=== PATIENT | male | born 1930 | race Caucasian/White ===

== ENCOUNTER 2017-06-06 12:15 | Day surgery (SDC) | payer MEDICARE, BC ==
[~2017-06-06] VITALS: Ht 190.7 cm; Wt 108.0 kg
[2017-06-06] VITALS (9 sets, daily range): BP systolic 103–148; BP diastolic 66–102; PULSE 60–81; TEMP 97.4
[~2017-06-06 12:15] MED LIST: ASPI325T6 PO; CLOPIDOGREL PO; CRESTOR 10MG10 MG PO; LASIX 20MG TABL20 MG PO; NITROQUICK0.4 MG SL; PLAVIX 75MG TAB75 MG PO; TIAZAC180 MG PO; TOPROL XL 50MG50 MG PO; VOLTAREN 75 DR75 MG PO; VYTORIN; ZESTORETIC 12.51 TA1 PO; ZESTORETIC 12.51 TAB PO
[2017-06-06 12:49] LABS: HEMATOCRIT 45.4 % (42.0-52.0); HEMOGLOBIN 15.2 g/dl (13.5-18.0); MEAN CELL VOLUME 94 fl (80.0-100.0); MEAN CORPUSCULAR HEMOGLOBIN 31 pg (27.0-31.0); MEAN CORPUSCULAR HGB CONC 34 g/dl (33.0-37.0); MEAN PLATELET VOLUME 10.2 fl (7.4-10.4); PLATELET COUNT 145 K/mm3 (130-400); RED BLOOD COUNT 4.84 M/mm3 (4.20-5.60); REDCELL DISTRIBUTION WIDTH-CV 13.5 % (11.5-14.5)
[2017-06-06] MEDS ORDERED: ASPIRIN E.C. 8181 MG PO (12:51)
[2017-06-06 12:54] LABS: PROTHROMBIN TIME 11.3 SECONDS (9.7-12.8)
[2017-06-06] MEDS ORDERED: K-DUR20 MEQ PO (12:56)
[2017-06-06 13:02] LABS: CALCIUM 9.7 mg/dL (8.4-10.2); CREATININE, serum 1.55 mg/dL (0.66-1.25); POTASSIUM 3.9 mmol/L (3.4-5.0)
--- NOTE | 2017-06-06 16:15 | NUR ---
Pt returned to [facility] 11 per bed s/p heart cath. Pt resting well, family at bedside.
--- NOTE | 2017-06-06 16:40 | NUR ---
Report to Prem Boudreaux RN who assumed care at this time.
--- NOTE | 2017-06-06 16:45 | NUR ---
Report received from Sven Tapia.
--- NOTE | 2017-06-06 18:30 | NUR ---
went over discharge inst. with pt and , pt has an appt with Dr Yarbrough, also no new RX for pt, reviewed activity inst. and incision care with verbal understanding. pt sat on side of bed, walked in arnett, used b/r, no changes to dressing.
--- NOTE | 2017-06-06 19:00 | NUR ---
iv d'cd intact, pt up in room, discharged via w/c to car with family
[2017-07-06] MEDS ORDERED: PRINIVIL10 MG PO (12:30)
== END 2017-06-06 19:03 | disposition home or self-care (01) ==
LOC: COL.CAR 12:15
PROVIDERS: Internal Medicine Interventional Cardiology
DX: I25.10 Atherosclerotic heart disease of native coronary artery without angina pectoris (principal); I70.213 Atherosclerosis of native arteries of extremities with intermittent claudication, bilateral legs; E78.5 Hyperlipidemia, unspecified; I25.2 Old myocardial infarction; E66.9 Obesity, unspecified; I11.0 Hypertensive heart disease with heart failure; I50.22 Chronic systolic (congestive) heart failure; Z79.01 Long term (current) use of anticoagulants; Z95.1 Presence of aortocoronary bypass graft; Z82.49 Family history of ischemic heart disease and other diseases of the circulatory system; Z95.820 Peripheral vascular angioplasty status with implants and grafts
CPT/HCPCS: C1760; C1769; C1887; C1894; J0583; J2250; J3010; Q9967

== ENCOUNTER → 2017-07-06 | Day surgery (SDC) | payer MEDICARE, BC ==
[~2017-07-06] VITALS: Ht 190.5 cm; Wt 110.9 kg
[~2017-07-06] MED LIST changes: +ASPIRIN E.C. 8181 MG PO; +K-DUR20 MEQ PO; +PRINIVIL10 MG PO; +TOPROL XL 25MG25 MG PO; -TOPROL XL 50MG50 MG PO
[2017-07-06 12:47] LABS: HEMATOCRIT 40.7 % (42.0-52.0); HEMOGLOBIN 13.7 g/dl (13.5-18.0); MEAN CELL VOLUME 94 fl (80.0-100.0); MEAN CORPUSCULAR HEMOGLOBIN 32 pg (27.0-31.0); MEAN CORPUSCULAR HGB CONC 34 g/dl (33.0-37.0); MEAN PLATELET VOLUME 9.8 fl (7.4-10.4); PLATELET COUNT 133 K/mm3 (130-400); RED BLOOD COUNT 4.31 M/mm3 (4.20-5.60); WHITE BLOOD COUNT 6.3 K/mm3 (4.8-10.8)
[2017-07-06 12:53] VITALS: BP 122/85; PULSE 73; TEMP 98.7
[2017-07-06 13:05] LABS: INR 1.1 (0.8-3.0); PROTHROMBIN TIME 11.7 SECONDS (9.7-12.8)
[2017-07-06 13:12] LABS: CALCIUM 9.6 mg/dL (8.4-10.2); CREATININE, serum 1.51 mg/dL (0.66-1.25); POTASSIUM 3.9 mmol/L (3.4-5.0)
[2017-07-06 14:01] VITALS: BP 145/93; PULSE 72
== END ==
LOC: EUO 11:49 → COL.CAR 12:00
PROVIDERS: Internal Medicine Interventional Cardiology
DX: I25.10 Atherosclerotic heart disease of native coronary artery without angina pectoris (principal); I34.0 Nonrheumatic mitral (valve) insufficiency; I11.0 Hypertensive heart disease with heart failure; I50.22 Chronic systolic (congestive) heart failure; E78.5 Hyperlipidemia, unspecified; E66.9 Obesity, unspecified; Z95.1 Presence of aortocoronary bypass graft
CPT/HCPCS: C1769; C1894; J2250; J3010

== ENCOUNTER 2017-07-18 10:32 | Day surgery (SDC) | payer MEDICARE, BC ==
[~2017-07-18] VITALS: Ht 190.7 cm; Wt 109.0 kg
[2017-07-18] VITALS (8 sets, daily range): BP systolic 114–147; BP diastolic 65–95; PULSE 57–68; TEMP 97.7
[2017-07-18 11:25] LABS: HEMATOCRIT 42.1 % (42.0-52.0); HEMOGLOBIN 13.9 g/dl (13.5-18.0); MEAN CELL VOLUME 96 fl (80.0-100.0); MEAN CORPUSCULAR HEMOGLOBIN 32 pg (27.0-31.0); MEAN CORPUSCULAR HGB CONC 33 g/dl (33.0-37.0); MEAN PLATELET VOLUME 10.5 fl (7.4-10.4); PLATELET COUNT 140 K/mm3 (130-400); RED BLOOD COUNT 4.39 M/mm3 (4.20-5.60)
[2017-07-18 11:28] LABS: CALCIUM 9.7 mg/dL (8.4-10.2); CREATININE, serum 1.47 mg/dL (0.66-1.25); INR 1.1 (0.8-3.0); POTASSIUM 3.8 mmol/L (3.4-5.0); PROTHROMBIN TIME 12.1 SECONDS (9.7-12.8)
== END 2017-07-18 16:50 | disposition home or self-care (01) ==
LOC: COL.CAR 10:32
PROVIDERS: Internal Medicine Interventional Cardiology
DX: I25.10 Atherosclerotic heart disease of native coronary artery without angina pectoris (principal); I11.0 Hypertensive heart disease with heart failure; I50.22 Chronic systolic (congestive) heart failure; E78.5 Hyperlipidemia, unspecified; E66.9 Obesity, unspecified
CPT/HCPCS: C1760; C1769; C1887; C1894; J1940; J2250; J3010; Q9967

== ENCOUNTER 2017-11-16 11:12 | Day surgery (SDC) | payer MEDICARE, BC ==
[2017-11-16] VITALS (7 sets, daily range): BP systolic 81–133; BP diastolic 69–94; PULSE 67–74; TEMP 97.3
[~2017-11-16] VITALS: Ht 190.5 cm; Wt 109.7 kg
[~2017-11-16 11:12] MED LIST changes: -TOPROL XL 25MG25 MG PO; +TOPROL XL 50MG50 MG PO
[2017-11-16 11:33] LABS: INR 2.7 (0.8-3.0); POTASSIUM 4.1 mmol/L (3.4-5.0); PROTHROMBIN TIME 32.3 SECONDS (9.7-12.8)
[2017-11-16] MEDS ORDERED: XARELTO15 MG PO (12:05)
[2017-11-16] MEDS ORDERED: IMDUR 30MG30 MG/TAB PO (12:06)
[2017-11-16] MEDS ORDERED: ENTRESTO 24 MG1 EACH PO (12:07)
[2017-11-16 12:10] LABS: THYROID STIMULATING HORMONE 4.15 uIU/mL (0.465-4.680)
[2017-11-16] MEDS ORDERED: ZESTORETIC 12.51 TAB PO (12:10)
== END 2017-11-16 16:22 | disposition home or self-care (01) ==
LOC: COL.CAR 11:12
PROVIDERS: Internal Medicine Interventional Cardiology
DX: I48.0 Paroxysmal atrial fibrillation (principal); I11.0 Hypertensive heart disease with heart failure; I50.22 Chronic systolic (congestive) heart failure; I25.119 Atherosclerotic heart disease of native coronary artery with unspecified angina pectoris; E78.5 Hyperlipidemia, unspecified; E66.9 Obesity, unspecified; Z68.31 Body mass index [BMI] 31.0-31.9, adult; Z88.0 Allergy status to penicillin; Z79.01 Long term (current) use of anticoagulants; Z79.82 Long term (current) use of aspirin; Z95.1 Presence of aortocoronary bypass graft; Z95.810 Presence of automatic (implantable) cardiac defibrillator; Z96.641 Presence of right artificial hip joint; Z90.49 Acquired absence of other specified parts of digestive tract
CPT/HCPCS: G9654; J2704